=== PATIENT | female | born 1955 | race Caucasian/White ===

== ENCOUNTER 2021-02-22 13:10 | Day surgery (SDC) | payer MEDICARE, OTHER ==
[~2021-02-22] VITALS: Ht 170.2 cm; Wt 92.2 kg
[~2021-02-22 13:10] MED LIST: ACHD5005 PO; ALPRAZolam 0.25 MG (XANAX) TAB PO PRN; AMIT150T PO; ATOR20TA66 PO; BUPR200T3 PO; CALCIUM CARBONATE 500 MG (TUMS) TAB.CHEW PO PRN; CARV25TA PO; CEPH250C PO; CLON0.5T4 PO; IBUP-1780 PO; INDO25CA99 PO; LEVO25TA5 PO; LOPERAMIDE 2 MG (IMODIUM) TABLET PO PRN; LOSA1TAB23 PO; MELATONIN 3 MG TABLET PO PRN; NF-ZOL12.5 PO; NS IV 1000 ML 1,000 ML IV SCH; PANT40TA52 PO; POTA20TA15 PO; TIZA4TAB4 PO; diphenhydrAMINE 25 MG TAB (BENADRYL) PO PRN; morphine INJ 10 MG/ML 1ML (SYR OR VIAL) IVP PRN
[2021-02-22 13:45] VITALS: BP 202/84
[2021-02-22 14:10] VITALS: BP 185/78
[2021-02-22] MEDS ORDERED: ACETAMINOPHEN 325 MG TABLET PO PRN (14:15)
[2021-02-22] MEDS ORDERED: OMEP40CA6 PO (14:47)
[2021-02-22] MEDS ORDERED: LOSA50TA63 PO (14:47)
[2021-02-22] MEDS ORDERED: CLON0.5T4 PO (14:47)
[2021-02-22 15:01] LABS: BASOPHILS % (AUTO) 0 % (0-10); EOSINOPHILS # (AUTO) 0.1 10^3/uL (0.0-0.3); EOSINOPHILS % (AUTO) 2 % (0-10); HEMATOCRIT 40 % (35-52); HEMOGLOBIN 13.2 g/dL (11.5-16.0); LYMPHOCYTES # (AUTO) 1.8 X 10^3 (1.0-4.0); LYMPHOCYTES % (AUTO) 29 % (12-44); MEAN CORPUSCULAR HEMOGLOBIN 31 pg (25-34); MEAN CORPUSCULAR HGB CONC 33 g/dL (32-36); MEAN CORPUSCULAR VOLUME 95 fL (80-99); MEAN PLATELET VOLUME 9.6 fL (9.0-12.2); MONOCYTES # (AUTO) 0.4 X 10^3 (0.0-1.0); MONOCYTES % (AUTO) 6 % (0-12); NEUTROPHILS % (AUTO) 64 % (42-75); PLATELET COUNT 219 10^3/uL (130-400); WHITE BLOOD COUNT 6.4 10^3/uL (4.3-11.0)
[2021-02-22] MEDS ORDERED: CARV25TA PO (15:02)
[2021-02-22 15:15] LABS: ALBUMIN 3.9 GM/DL (3.2-4.5); POTASSIUM 3.9 MMOL/L (3.6-5.0)
[2021-02-22] MEDS ORDERED: HEParin DRIP 25000 UNIT/500ML 500 ML IV SCH (15:15)
[2021-02-22] MEDS ORDERED: NITROGLYCERIN 0.4 MG SL TABS BTL 25'S SL PRN (15:15)
[2021-02-22] MEDS ORDERED: HEParin 1000 UNIT/ML (10ML VIAL) FOR BOLUS IV PRN (15:15)
[2021-02-22 15:16] LABS: CALCIUM 9.7 MG/DL (8.5-10.1)
[2021-02-22 15:19] LABS: BILIRUBIN,TOTAL 0.4 MG/DL (0.1-1.0)
[2021-02-22 15:21] LABS: CREATININE SERUM 1.08 MG/DL (0.60-1.30)
[2021-02-22 15:30] VITALS: BP 214/81
[2021-02-22] MEDS ORDERED: ASPIRIN E.C. 81 MG (ECOTRIN) TAB PO ONE (15:30)
--- NOTE | 2021-02-22 15:31 | Consultation-Cardiology ---
HPI-Cardiology Cardiology Consultation: Date of Consultation 02/22/2021 Date of Admission 02/22/2021 Attending Physician Eula Davis DO Admitting Physician Ruba,Local Physician Consulting Physician SAIGE DIAZ JR, MD HPI: Time Seen by a Provider: 15:26 Chief Complaint: Reason for consultation: Chest pain. I had the pleasure of seeing Michelle on the medical floor at [facility] and [place], [place] this afternoon. She has no known history of coronary artery disease. 3 days ago when she got up in the morning she started having sharp, substernal chest discomfort associated with shortness of breath. She was helping her disabled 40-year-old daughter get ready for adult daycare and exertion was making the discomfort worse. She did not seek medical attention. Once her daughter left, she rested and the chest discomfort resolved. However, for the remainder of the day, anytime she would try to do activity at home, she would get recurrent chest discomfort. She denies radiation. Other than the shortness of breath, she denies any other associated complaints. Then yesterday she had much more severe chest discomfort. She describes this as 50 out of 10. She finished helping her daughter get ready to leave the house and then just try to sleep for the day. However, she had chest discomfort off and on for most of yesterday. This morning the chest discomfort had eased up but she was still getting exertional chest tightness and sharp chest pains. She called her primary provider who recommended she go to the emergency room at [facility]. She was subsequently transferred to our facility for further evaluation. At the outside hospital she did have an echocardiogram that showed a normal ejection fraction. She was not given any aspirin at the outside hospital. When I saw her in the floor she was still having some mild, 3/10 chest pain. A short while earlier, she told her nurse she was having 1/10 chest pain. She did not normally have dyspnea. She denies any previous history of chest discomfort. She denies paroxysmal nocturnal dyspnea, orthopnea, palpitations, lightheadedness, or syncope. She gets mild right ankle edema from time to time. She smokes 7-8 cigarettes/day. She spends much of her time hel ping her disabled daughter who lives with her. 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 Certain portions of this document may have been dictated utilizing voice recognition technology. Inherent to this technology, typographical and grammatical errors may exist. As much as I am diligent to identify and correct these mistakes, some errors may remain in the document. Review of Systems-Cardiology Review of Systems Other comments Review of 10 organ systems is as per the history of present illness, otherwise negative. IYL-[id number]-Jmddsb Hx Patient Social History Smoking Status: Current Everyday Smoker Have you traveled recently?: No Alcohol Use?: No Pt feels they are or have been: No Tobacco type used: Cigarettes Immunizations Up To Date Tetanus Booster (TDap): Unknown Date of Pneumonia Vaccine: Mar 04, 2015 Past Medical History PMH As described under Assessment. Family Medical History Family Medical History: The patient does not know of any family history of premature coronary artery disease. Family History: Patient reports no known family medical history. Allergies and Home Medications Allergies Coded Allergies: methylergonovine (Verified Allergy, Intermediate, INCREASED B/P, N/V, 01/17/16) Patient Home Medication List Home Medication List Reviewed: Yes Amitriptyline HCl (Amitriptyline HCl) 150 Mg Tablet, 150 MG PO HS, (Reported) Entered as Reported by: STEPHANIE MARIEE on 01/17/16 1233 Last Action: Reviewed Carvedilol (Carvedilol) 25 Mg Tablet, 25 MG PO HS, (Reported) Entered as Reported by: ANNETTE BAR on 02/22/21 1502 Last Action: Reviewed Clonazepam (Clonazepam) 0.5 Mg Tablet, 0.5 MG PO BID PRN for SPASMS, (Reported) Entered as Reported by: ANNETTE BAR on 02/22/211446 Last Action: Reviewed Losartan Potassium (Losartan Potassium) 50 Mg Tablet, 50 MG PO HS, (Reported) Entered as Reported by: ANNETTE BAR on 02/22/211446 Last Action: Reviewed Omeprazole (Omeprazole) 40 Mg Capsule.dr, 40 MG PO HS, (Reported) Entered as Reported by: ANNETTE BAR on 02/22/211446 Last Action: Reviewed Tizanidine HCl (Tizanidine HCl) 4 Mg Tablet, 4 MG PO Q6H PRN for SPASMS, (Reported) Entered as Reported by: STEPHANIE MARIEE on 01/17/16 1233 Last Action: Reviewed Discontinued Medications Atorvastatin Calcium (Atorvastatin Calcium) 20 Mg Tablet, 20 MG PO HS, (Reported) Discontinued Reason: No Longer Taking Entered as Reported by: STEPHANIE MARIEE on 01/17/16 123 Last Action: Discontinued Bupropion HCl (Bupropion HCl Sr) 200 Mg Tablet.er, 200 MG PO BID, (Reported) Discontinued Reason: No Longer Taking Entered as Reported by: STEPHANIE MARIEE on 01/17/16 123 Last Action: Discontinued Carvedilol (Carvedilol) 25 Mg Tablet, 25 MG PO BID, (Reported) Discontinued Reason: No Longer Taking Entered as Reported by: STEPHANIE MARIEE on 01/17/161232 Last Action: Discontinued Clonazepam (Clonazepam) 0.5 Mg Tablet, 0.5 MG PO BID, (Reported) Discontinued Reason: No Longer Taking Entered as Reported by: STEPHANIE MARIEE on 01/17/161232 Last Action: Discontinued Indomethacin (Indomethacin) 25 Mg Capsule, 25 MG PO TID Discontinued Reason: No Longer Taking Prescribed by: STEVE ZHOU on 02/04/16 1227 Last Action: Discontinued Levothyroxine Sodium (Levothyroxine Sodium) 25 Mcg Tablet, 25 MCG PO DAILY, (Reported) Discontinued Reason: No Longer Taking Entered as Reported by: STEPHANIE MARIEE on 01/17/161232 Last Action: Discontinued Losartan/Hydrochlorothiazide (Losartan-Hctz 100-25 mg Tab) 1 Each Tablet, 1 TAB PO HS, (Reported) Discontinued Reason: No Longer Taking Entered as Reported by: STEPHANIE MARIEE on 01/17/16 123 Last Action: Discontinued Potassium Chloride (Potassium Chloride) 20 Meq Tab.er.prt, 20 MEQ PO DAILY, (Reported) Discontinued Reason: No Longer Taking Entered as Reported by: CHRISTINA XIAO on 02/03/16 0904 Last Action: Discontinued Zolpidem Tartrate (Zolpidem Tartrate ER) 12.5 Mg Tab.mphase, 12.5 MG PO HS PRN for SLEEP, (Reported) Discontinued Reason: No Longer Taking Entered as Reported by: STEPHANIE MARIEE on 01/17/16 123 Last Action: Discontinued Exam Vital Signs Vital Signs Date Time Temp Pulse Resp B/P (MAP) Pulse Ox O2 Delivery O2 Flow Rate FiO2 02/22/21 13:45 36.1 75 20 202/84 (123) 98 Room Air Physical Exam General: Alert. No acute distress. Well nourished and appears stated age. Eye: Extraocular movements are intact. Conjunctivae are clear. There are no xanthelasma. HENT: Normocephalic. Atraumatic. Carotid pulsations 2/2 without bruits. Neck: Jugular venous pressure does not appear elevated. No thyromegaly appreciated. Respiratory: Lungs are clear to auscultation. Respirations are non-labored. Breath sounds are equal. Symmetrical chest wall expansion. Cardiovascular: Normal rate. Regular rhythm. No murmur. No gallop. Point of maximal impulse is not appear displaced. Good pulses equal in all extremities. No edema. Gastrointestinal: Soft. Normal bowel sounds. Skin: Skin turgor is normal. There is no pallor. Musculoskeletal: No kyphosis or scoliosis appreciated. Neurologic: Alert and oriented to person, place, time. Cranial nerves 3-12 appear grossly intact. The patient has good motor tone strength in the upper and lower extremities bilaterally. Psychiatric: Cooperative. Appropriate mood & affect. Labs Laboratory Tests Test 02/22/21 14:54 Range/Units White Blood Count 6.4 4.3-11.0 10^3/uL Red Blood Count 4.22 3.80-5.11 10^6/uL Hemoglobin 13.2 11.5-16.0 g/dL Hematocrit 40 35-52 % Mean Corpuscular Volume 95 80-99 fL Mean Corpuscular Hemoglobin 31 25-34 pg Mean Corpuscular Hemoglobin Concent 33 32-36 g/dL Red Cell Distribution Width 13.9 10.0-14.5 % Platelet Count 219 130-400 10^3/uL Mean Platelet Volume 9.6 9.0-12.2 fL Immature Granulocyte % (Auto) 0 % Neutrophils (%) (Auto) 64 42-75 % Lymphocytes (%) (Auto) 29 12-44 % Monocytes (%) (Auto) 6 0-12 % Eosinophils (%) (Auto) 2 0-10 % Basophils (%) (Auto) 0 0-10 % Neutrophils # (Auto) 4.0 1.8-7.8 X 10^3 Lymphocytes # (Auto) 1.8 1.0-4.0 X 10^3 Monocytes # (Auto) 0.4 0.0-1.0 X 10^3 Eosinophils # (Auto) 0.1 0.0-0.3 10^3/uL Basophils # (Auto) 0.0 0.0-0.1 10^3/uL Immature Granulocyte # (Auto) 0.0 0.0-0.1 10^3/uL Activated Partial Thromboplast Time 32 24-35 SEC Sodium Level 139 135-145 MMOL/L Potassium Level 3.9 3.6-5.0 MMOL/L Chloride Level 104 98-107 MMOL/L Carbon Dioxide Level 27 21-32 MMOL/L Anion Gap 8 5-14 MMOL/L Blood Urea Nitrogen 14 7-18 MG/DL Creatinine 1.08 0.60-1.30 MG/DL Estimat Glomerular Filtration Rate 51 BUN/Creatinine Ratio 13 Glucose Level 92 70-105 MG/DL Calcium Level 9.7 8.5-10.1 MG/DL Corrected Calcium 9.8 8.5-10.1 MG/DL Total Bilirubin 0.4 0.1-1.0 MG/DL Aspartate Amino Transf (AST/SGOT) 21 5-34 U/L Alanine Aminotransferase (ALT/SGPT) 16 0-55 U/L Alkaline Phosphatase 90 40-136 U/L Troponin I 0.098 H <0.028 NG/ML Total Protein 7.0 6.4-8.2 GM/DL Albumin 3.9 3.2-4.5 GM/DL Triglycerides Level 81 <150 MG/DL Cholesterol Level 226 H < 200 MG/DL LDL Cholesterol Direct 163 H 1-129 MG/DL VLDL Cholesterol 16 5-40 MG/DL HDL Cholesterol 61 H 40-60 MG/DL Radiology Echocardiogram from [facility] showed normal left ventricular chamber size with severe septal hypertrophy. Regional wall motion abnormalities could not be excluded due to poor endocardial definition. The overall left ventricular systolic function was preserved with an estimated ejection fraction of 60-65%. There was grade 1 diastolic dysfunction. There was mild aortic valve sclerosis. The pulmonary artery pressure could not be estimated. ECG Impression ECG Comment Sinus rhythm with inferolateral T wave inversion concerning for possible recent inferior myocardial infarction although there are no Q waves. Diagnosis/Problems Diagnosis/Problems (1) Non-ST elevation myocardial infarction (NSTEMI), initial care episode Assessment & Plan: She had mild elevation of the troponin at the outside hospital. However, this is in the setting of stage III chronic kidney disease. She has inferolateral T wave changes on her electrocardiogram is outlined above. Fortunately, her overall left ventricular systolic function appears normal. She is nearly pain-free at this point time. I will start her on aspirin with the first dose now. I will treated with heparin infusion and topical nitrates. I will plan on a cardiac catheterization first thing in the morning. If she has recurrent chest discomfort overnight, she will need to be placed on intravenous nitroglycerin. If for some reason, we cannot get her pain-free, she may need a more urgent cardiac catheterization this evening. I do not see any urgent need for cardiac catheterization at this moment. (2) Hypertensive urgency Assessment & Plan: Her blood pressure is presently markedly elevated. I will restart her carvedilol and losartan with the first doses to be given now. (3) Hypertrophic cardiomyopathy Assessment & Plan: She had severe septal hypertrophy without evidence of outflow obstruction on her outside echocardiogram. This should not be contributing to her chest discomfort, the abnormal troponin levels or the electrocardiogram changes. However, this will need to be followed longitudinally. (4) Chronic kidney disease, stage 3 Assessment & Plan: She will need vigorous intravenous hydration prior to the cardiac catheterization to help reduce the risk of contrast-induced nephropathy. (5) Primary hypertension Assessment & Plan: Resume outpatient antihypertensive medications as outlined above. (6) Mixed hyperlipidemia Assessment & Plan: I will start her on moderate dose rosuvastatin in light of the probable non-ST elevation myocardial infarction. She is ordered for a lipid profile. (7) Cigarette smoker Assessment & Plan: Smoking cessation was strongly encouraged. SAIGE DIAZ JR, MD Feb 22, 2021 15:31
[2021-02-22] MEDS: HYDROcodone/APAP 5 MG/325 MG (LORTAB) TAB PO PRN (15:33)
[2021-02-22] MEDS: NITROGLYCERIN 2% OINT 1 GM UNIT DOSE PACKET TOP SCH ×2 (15:47→18:49)
[2021-02-22] MEDS ORDERED: LOSARTAN 50 MG (COZAAR) TAB PO ONE (16:00)
[2021-02-22] MEDS ORDERED: CATHETER FLUSH 10 ML SYR IV PRN (16:00)
--- NOTE | 2021-02-22 16:00 | History & Physical-Hospitalist ---
MARCELLA CHAMBERS 02/22/21 1600: History of Present Illness HPI/Chief Complaint Michelle Banegas is a 65yo female with a PMH of COPD, HTN who is admitted on for management for hypertensive urgency and unstable angina. Patient reports onset of dull, crushing chest pain that began on 02/20 while vacuuming. She rated the pain "15/10" in severity, and reports that it is non-radiating and non- reproducible. Is associated with feeling like her heart is racing. Reports that the pain lasts minutes at a time and occurs several times during the day. She reports worsening dyspnea during this time, separate from her baseline COPD. Pain is worsened with activity. On 02/21 pt reported onset of symptoms at rest. She has never experienced symptoms like this before. She initially presented to [facility] where she was given ASA. She was then transferred to [facility] for further management. In addition, patient reports acute increase in blood pressure for the past three days. Patient normally takes blood pressures at home, and reports systolic pressures between 130s to 180s. However, since 02/20 her pressures have been 200s systolic. Denies fevers, chills, nausea, vomiting. Denies diarrhea, constipation, dysuria. Endorses chest pain, palpitations, SOB. Source: patient Exam Limitations: no limitations Date Seen 02/22/21 Attending Physician Eula Rogers DO PCP No,Local Physician Referring Physician Date of Admission Feb 22, 2021 at 13:40 Home Medications & Allergies Home Medications Reviewed patient Home Medication Reconciliation performed by pharmacy medication reconciliations survey technician and/or nursing. Patients Allergies have been reviewed. Allergies Allergies Coded Allergies methylergonovine (Verified Allergy, Intermediate, INCREASED B/P, N/V, 01/17/16) Past Stoepxl-Fsqxth-Xdekiy Hx Patient Social History Marrital Status: Tobacco Use?: Yes Tobacco type used: Cigarettes Smoking Status: Current Everyday Smoker Smokeless Tobacco Frequency: Current Everyday User (6-7 cigarettes per day for 57 years) Use of E-Cig and/or Vaping dev: No Substance use?: No Alcohol Use?: No Pt feels they are or have been: No Immunizations Up To Date First/Initial COVID19 Vaccinat: OCT 14 2020 Second COVID19 Vaccination [place]: NOVEMBER 17 2020 Tetanus Booster (TDap): Unknown Hepatitis A: No Hepatitis B: No PED Vaccines UTD: No Date of Pneumonia Vaccine: Mar 04, 2015 Seasonal Allergies Seasonal Allergies: Yes Current Status Advance Directives: Yes Advance Directive Location: Family to bring in copy Communicates: Verbally Primary Language: Mosotho Preferred Spoken Language: Mosotho Is interpretation needed?: No Past Medical History Surgeries: Gallbladder COPD Currently Using CPAP: No Currently Using BIPAP: No High Cholesterol, Hypertension Sexually Transmitted Disease: No HIV/AIDS: No Degenerate Disk Disease, Arthritis Hypothyroidsim Loss of Vision: Bilateral Hearing Impairment: Denies Anxiety Adverse Reaction/Blood Tranf: No (N/A) Family Medical History Patient reports no known family medical history. Physical Exam Physical Exam Vital Signs Vital Signs - First Documented 02/22/21 13:45 Temp 36.1 Pulse 75 Resp 20 B/P (MAP) 202/84 (123) Pulse Ox 98 O2 Delivery Room Air Capillary Refill : Height, Weight, BMI Height: 5'7.00" Weight: 190lbs. 6.8oz. [id number]; 31.82 BMI Method:Stated General Appearance: No Apparent Distress, WD/WN Neck: Normal Inspection, Non Tender, Supple Respiratory: Chest Non Tender, Lungs Clear, Normal Breath Sounds, No Accessory Muscle Use, No Respiratory Distress Cardiovascular: Regular Rate, Rhythm, Normal Peripheral Pulses, Systolic Murmur ([place] best at right side, 2nd intercoastal space) Gastrointestinal: Normal Bowel Sounds Extremity: Pedal Edema Neurologic/Psychiatric: Alert, Oriented x3 Skin: Normal Color, Warm/Dry Results Results/Procedures Labs Laboratory Tests 02/22/21 14:54 Patient resulted labs reviewed. Assessment/Plan Admission Diagnosis Acute Coronary Syndrome Admission Status: Inpatient Order (span 2 midnights) Reason for Inpatient Admission: ACS management and heart cath Assessment and Plan Michelle Banegas is a 65yo female with a PMH of COPD, HTN who is admitted on 02/22 for management for hypertensive urgency and unstable angina. Her current medical problems are the following Acute coronary syndrome NSTEMI -EKG 02/22 Consistent w/ NSTEMI: Twave inversions in inferior leads -Pain relieved with ASA at OSH. Symptoms present at rest and activity -Trop at OSH 0.106, at [facility] 0.09 Plan: -Per Cardiology: Continue ASA. Begin heparin, morphine, nitroglycerin -Heart cath 02/23 AM Hypertensive Urgency -02/22: On admission BP SBP>200 -Continue ADMINISTRATIVE MANAGER Lisinopril, Carvedilol -Continue Nitroglycerin q6h and PRN HFpEF -Echo from OSH consistent with diastolic dysfunction w/ preserved EF -Chest xray 02/22: Coarse intersitial changes, enlarged cardiac silhouette. -BLE edema on exam Plan: -Continue ADMINISTRATIVE MANAGER Carvedilol 25mg PO qday Mild -Echo from OSH indicates mild . -Systolic murmur on exam -No management indicated COPD -No ADMINISTRATIVE MANAGER medications -Baseline - no supp oxygen -Continue to follow Chronic Neck Pain -Continue ADMINISTRATIVE MANAGER meds EULA ROGERS DO 02/23/21 0518: History of Present Illness HPI/Chief Complaint CC: Chest pain with hypertension HPI: This is a 65yoWF who presented to [place] [facility] with complaints of chest pain and significantly elevated BP of 200. EKG showed ST changes, concerning for ischemia, Dr. Owens will be consulted and will likely perform cardiac catheterization. Norvasc of 10 mg was given. Patient does smoke. No significant alcohol use. She has been 6 times. Source: patient Exam Limitations: no limitations Time Seen by a Provider: 18:00 Past Viuaiwe-Zeneux-Xhaoma Hx Patient Social History Marrital Status: Employed/Student: retired Smoking Status: Current Everyday Smoker Smokeless Tobacco Frequency: Current Everyday User (6-7 cigarettes per day for 57 years) Past Medical History Hypertension Family Medical History Patient reports no known family medical history. Review of Systems Constitutional: see HPI, malaise, weakness EENTM: no symptoms reported Respiratory: no symptoms reported Cardiovascular: chest pain Gastrointestinal: no symptoms reported Genitourinary: no symptoms reported Musculoskeletal: no symptoms reported Skin: no symptoms reported Psychiatric/Neurological: No Symptoms Reported All Other Systems Reviewed Negative Unless Noted: Yes Physical Exam Physical Exam General Appearance: No Apparent Distress, WD/WN, Chronically ill Eyes: Right Eye Normal Inspection, Right Eye PERRL HEENT: PERRL/EOMI, Normal ENT Inspection, Pharynx Normal, Moist Mucous Membrane s Neck: Full Range of Motion, Normal Inspection, Non Tender Respiratory: Chest Non Tender, Lungs Clear, Normal Breath Sounds, No Accessory Muscle Use, No Respiratory Distress Cardiovascular: Regular Rate, Rhythm, No Edema, No Gallop, No JVD, No Murmur, Normal Peripheral Pulses Gastrointestinal: Normal Bowel Sounds, No Organomegaly, No Pulsatile Mass, Non Tender, Soft Back: Normal Inspection, No CVA Tenderness, No Vertebral Tenderness Extremity: Normal Capillary Refill, Normal Inspection, Normal Range of Motion, Non Tender, No Calf Tenderness, No Pedal Edema Neurologic/Psychiatric: Alert, Oriented x3, No Motor/Sensory Deficits, Normal Mood/Affect Skin: Normal Color, Warm/Dry Lymphatic: No Adenopathy Assessment/Plan Admission Diagnosis Assessment: Chest pain suspicious for angina needs cardiac cath Malignant hypertension Smoker Plan: Blood pressure management Cardiac cath tomorrow Admission Status: Observation Diagnosis/Problems Diagnosis/Problems (1) Chest pain (2) Cigarette smoker Supervisory-Addendum Brief Verification & Attestation Participated in pt care: history, MDM, physical Personally performed: exam, history, MDM, supervision of care Care discussed with: Medical Student Procedures: n/a Results interpretation: Verified all documentation Verification and Attestation of Medical Student E/M Service A medical student performed and documented this service in my presence. I reviewed and verified all information documented by the medical student and made modifications to such information, when appropriate. I personally performed the physical exam and medical decision making. Eula Rogers, Feb 23, 2021,05:18 MARCELLA CHAMBERS Feb 22, 2021 16:00 EULA ROGERS DO Feb 23, 2021 05:18
[2021-02-22] MEDS: NS IV 1000 ML 1,000 ML IV SCH (16:44)
[2021-02-22 19:33] VITALS: BP 119/55
[2021-02-22] MEDS: DOCUSATE SODIUM 100 MG (COLACE) CAP PO SCH (19:45)
[2021-02-22] MEDS: SENNA W/DOCUSATE (SENOKOT S) TABLET PO SCH (19:45)
[2021-02-22] MEDS: ROSUVASTATIN 20 MG (CRESTOR) TABLET PO SCH (19:47)
[2021-02-22 23:30] VITALS: BP 109/56
[2021-02-23] VITALS (8 sets, daily range): BP systolic 111–183; BP diastolic 59–94
[2021-02-23] MEDS: NITROGLYCERIN 2% OINT 1 GM UNIT DOSE PACKET TOP SCH ×3 (00:25→13:22)
[2021-02-23 04:44] LABS: BASOPHILS % (AUTO) 1 % (0-10); EOSINOPHILS # (AUTO) 0.1 10^3/uL (0.0-0.3); EOSINOPHILS % (AUTO) 2 % (0-10); HEMATOCRIT 37 % (35-52); HEMOGLOBIN 12.1 g/dL (11.5-16.0); LYMPHOCYTES # (AUTO) 1.8 10^3/uL (1.0-4.0); LYMPHOCYTES % (AUTO) 29 % (12-44); MEAN CORPUSCULAR HEMOGLOBIN 31 pg (25-34); MEAN CORPUSCULAR HGB CONC 33 g/dL (32-36); MEAN CORPUSCULAR VOLUME 95 fL (80-99); MEAN PLATELET VOLUME 10.1 fL (9.0-12.2); MONOCYTES # (AUTO) 0.6 10^3/uL (0.0-1.0); MONOCYTES % (AUTO) 9 % (0-12); NEUTROPHILS # (AUTO) 3.6 10^3/uL (1.8-7.8); NEUTROPHILS % (AUTO) 59 % (42-75); PLATELET COUNT 209 10^3/uL (130-400); WHITE BLOOD COUNT 6.2 10^3/uL (4.3-11.0)
[2021-02-23 05:01] LABS: ALBUMIN 3.3 GM/DL (3.2-4.5); POTASSIUM 3.7 MMOL/L (3.6-5.0)
[2021-02-23 05:02] LABS: CALCIUM 8.9 MG/DL (8.5-10.1)
[2021-02-23 05:03] LABS: TOTAL PROTEIN 5.8 GM/DL (6.4-8.2)
[2021-02-23 05:05] LABS: BILIRUBIN,TOTAL 0.4 MG/DL (0.1-1.0)
[2021-02-23 05:07] LABS: CREATININE SERUM 1.15 MG/DL (0.60-1.30)
[2021-02-23] MEDS ORDERED: NS IV 1000 ML 1,000 ML IV ONE (08:00)
[2021-02-23] MEDS ORDERED: HEParin (CATH LAB) 2,000 ML IV ONE (08:03)
[2021-02-23] MEDS ORDERED: LIDOCAINE 1% INJ 20 ML 20 ML VIAL ONE (08:03)
[2021-02-23] MEDS ORDERED: ASPIRIN E.C. 81 MG (ECOTRIN) TAB PO SCH (09:00)
[2021-02-23] MEDS ORDERED: MIDAZOLAM 5 MG/5 ML (VERSED) VIAL ONE (09:03)
[2021-02-23] MEDS ORDERED: HEParin 1000 UNIT/ML (10ML VIAL) FOR BOLUS ONE (09:03)
[2021-02-23] MEDS ORDERED: VERAPAMIL 5 MG/2 ML (CALAN) VIAL IV ONE (09:03)
[2021-02-23] MEDS ORDERED: fentaNYL INJ 100 MCG/2 ML AMP ONE ×2 (09:03→10:33)
[2021-02-23] MEDS ORDERED: NITRO DRIP 25000 MCG/D5W 250 ML IV ONE (09:03)
--- NOTE | 2021-02-23 09:55 | Pre-Op Note & Conscious Sedat ---
Pre-Operative Progress Note H&P Reviewed The H&P was reviewed, patient examined and no changes noted. Date H&P Reviewed: Feb 23, 2021 Time H&P Reviewed: 09:54 Pre-Op Diagnosis: Non-ST elevation myocardial infarction Conscious Sedation Pre-Proced ASA Score 2 For ASA 3 and 4: Consider anesthesia and medical clearance. Also, for patients with a history of failed moderate sedation consider anesthesia. Airway Lungs Heart ASA score ASA 1: a normal healthy patient ASA 2: a patient with a mild systemic disease (mid diabetes, controlled hypertension, obesity ASA 3: a patient with a severe systemic disease that limits activity (angina, COPD, prior Myocardial infarction) ASA 4: a patient with an incapacitating disease that is a constant threat to life (CHF, renal failure) ASA 5: a moribund patient not expected to survive 24 hrs. (ruptured aneurysm) ASA 6: a declared brain- patient whose organs are being harvested. For emergent operations, add the letter E after the classification Mallampati Classification Grade 2 Sedation Plan Analgesia, Amnesia, Plan communicated to team members, Discussed options with patient/fam, Discussed risks with patient/fam The patient is an appropriate candidate to undergo the planned procedure, sedation, and anesthesia. The patient immediately re-assessed prior to indication. SAIGE DIAZ JR, MD Feb 23, 2021 09:55
[2021-02-23] MEDS ORDERED: meTOprolol 5 MG/5 ML (LOPRESSOR) VIAL ONE (10:14)
[2021-02-23] MEDS ORDERED: hydrALAZINE (APESOLINE) 20 MG/ML VIAL ONE (10:30)
[2021-02-23] MEDS ORDERED: TICAGRELOR 90 MG TABLET (BRILINTA) PO ONE (10:40)
[2021-02-23] MEDS ORDERED: PATIENT MAY USE OWN MEDS, ALL PO SCH (11:15)
--- NOTE | 2021-02-23 11:35 | Cardiac Cath Report ---
CARDIAC CATHETERIZATION DATE OF PROCEDURE: 02/23/2021 INDICATION: Non-ST elevation myocardial infarction. HISTORY: The patient is a 65 year old female with no previously known history of coronary artery disease who presented to an outside hospital with several day history of chest discomfort. Her first troponin level was abnormal. There was no evidence of ST elevation on her electrocardiogram. She was then transferred to our hospital for further evaluation. Overnight, she became pain-free on intravenous heparin, aspirin, beta-yonny, and topical nitrates. She had 2 additional abnormal troponin levels here at our hospital. As such, she is now referred for further evaluation with a cardiac catheterization. PROCEDURES PERFORMED: 1. Diagnostic mashpee coronary angiography. 2. Drug-eluting stent placement to mid right coronary artery. This with the ischemia related vessel for the non-ST elevation myocardial infarction. PROCEDURE DESCRIPTION: After informed consent and in the fasting state, left heart catheterization was performed through the right radial artery utilizing a 6 Mosotho system by percutaneous approach. Standard Leatha catheters were utilized for the diagnostic portion of the procedure. I was not able to engage the left coronary artery from the right radial artery but did successfully interrogate the right coronary artery. I subsequently obtained access to the right femoral artery utilizing a 5 Mosotho micropuncture technique. The 5 Mosotho sheath was exchanged for a 6 Mosotho sheath. A 6 Mosotho AL-1 guide catheter was utilized for the percutaneous coronary intervention. All catheters were exchanged over a guidewire. Following the procedure, a vascular band was applied to the radial artery access site and the sheath was removed with good hemostasis. Following the procedure, a 6 Mosotho Mynx closure device was utilized to close the right femoral artery. RESULTS: HEMODYNAMICS: The aortic pressure was 149/72 mmHg. The aortic valve was not crossed. CORONARY ANGIOGRAPHY: Left main coronary artery: Free of significant disease. Left anterior descending coronary artery: There was a 70% stenosis in the mid segment which formed a bifurcation lesion with the first large diagonal branch with a Valentin classification of 1, 1, 0. There was RUTHIE-1 flow to the apical portion of the left anterior descending coronary artery. Left circumflex coronary artery: Free of significant disease. Right coronary artery: Dominant and very large in caliber with a 70% stenosis in the mid segment followed by a 90% stenosis in the mid segment with BISI-1 flow to the distal vessel. There was about a 5 mm distance between the 2 lesions and the vessel in between the lesions was also not entirely normal. This was most likely the ischemia related vessel for the non-ST elevation myocardial infarction. PERCUTANEOUS CORONARY INTERVENTION: Percutaneous coronary intervention was carried out on the mid right coronary artery through a 6 Mosotho AL-1 guide catheter from the right femoral sheath. The lesion was successfully crossed with a [employer] guidewire. I subsequently performed coronary angioplasty with a 3 x 15 mm trek balloon at a pressure of 10 jacque for 2 inflations. Flow was improved. I subsequently deployed a 4 x 28 mm drug-eluting Xience Guerline stent in the mid right coronary artery at a pressure of 16 jacque. Following stent placement, there was 0% residual stenosis with RUTHIE-3 flow. IMPRESSION: 1. Systemic hypertension. 2. Status post drug eluting stent placement to the mid right coronary artery with a 4 X 28 mm Xience Guerline stent with 0% residual stenosis and RUTHIE-3 flow. This was the ischemia related vessel for the acute non-ST elevation myocardial infarction. 3. There is moderate-severe residual disease in the mid left anterior descending coronary artery. This is a bifurcation lesion with the first diagonal branch at an area of extreme tortuousity in the vessel. 4. The patient is known to have normal left ventricular systolic function with an estimated ejection fraction of 60-65% by echocardiogram performed at [facility] on 02/22/2021. Certain portions of this document may have been dictated utilizing voice r ecognition technology. Inherent to this technology, typographical and grammatical errors may exist. As much as I am diligent to identify and correct these mistakes, some errors may remain in the document. SAIGE DIAZ JR, MD Feb 23, 2021 11:35
[2021-02-23] MEDS: DOCUSATE SODIUM 100 MG (COLACE) CAP PO SCH ×2 (12:26→19:52)
[2021-02-23] MEDS: SENNA W/DOCUSATE (SENOKOT S) TABLET PO SCH ×2 (12:27→19:52)
[2021-02-23] MEDS: NS IV 1000 ML 1,000 ML IV SCH ×3 (12:27→21:25)
[2021-02-23] MEDS: ASPIRIN E.C. 81 MG (ECOTRIN) TAB PO SCH (13:31)
[2021-02-23] MEDS: LOSARTAN 50 MG (COZAAR) TAB PO SCH (13:31)
--- NOTE | 2021-02-23 14:43 | Progress Note - Hospitalist ---
MARCELLA CHAMBERS 02/23/21 1443: Subjective HPI/CC On Admission Date Seen by Provider: Feb 23, 2021 Time Seen by Provider: 11:00 CC: Chest pain with hypertension HPI: This is a 65yoWF who presented to [facility] with complaints of chest pain and significantly elevated BP of 200. EKG showed ST changes, concerning for ischemia, Dr. Owens will be consulted and will likely perform cardiac catheterization. Norvasc of 10 mg was given. Patient does smoke. No significant alcohol use. She has been 6 times. Subjective/Events-last exam Today Ms. Banegas reported cessation of chest pain from the previous night. Has no other questions nor concerns. Was agreeable to the procedure today. Denies fevers, chills, SOB. Denies chest pain, palpitations. Denies nausea, vomiting, diarrhea, constipation Objective Exam Vital Signs Vital Signs Date Time Temp Pulse Resp B/P (MAP) Pulse Ox O2 Delivery O2 Flow Rate FiO2 02/23/21 12:39 35.7 02/23/21 12:36 66 02/23/21 12:30 168/82 (110) 92 Room Air 02/23/21 12:15 20 Capillary Refill : Greater Than 3 Seconds General Appearance: No Apparent Distress, WD/WN Respiratory: Chest Non Tender, No Accessory Muscle Use, No Respiratory Distress, Rhonci Cardiovascular: Regular Rate, Rhythm, No Edema, No JVD, No Murmur, Normal Peripheral Pulses Gastrointestinal: Normal Bowel Sounds Extremity: Normal Capillary Refill Neurologic/Psychiatric: Alert, Oriented x3 Results/Procedures Lab Laboratory Tests 02/23/21 04:25 Patient resulted labs reviewed. Assessment/Plan Assessment and Plan Assess & Plan/Chief Complaint Michelle Banegas is a 65yo female with a PMH of COPD, HTN who is admitted on 02/22 for management for hypertensive urgency and unstable angina. Her current medical problems are the following Acute coronary syndrome NSTEMI -EKG 02/22 Consistent w/ NSTEMI: Twave inversions in inferior leads -Pain relieved with ASA at OSH. Symptoms present at rest and activity -Trop at OSH 0.106, at [facility] 0.098 and 0.100 Plan: -Heart cath: Drug eluting stent placement of RCA -Significant disease also noted in LAD -Per cardiology:Begin ticagrelor. 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 -BLE edema on exam Plan: -Continue [employer]IEF OPERATOR LOCK TENDER Carvedilol 25mg PO qday Mild -Echo from OSH indicates mild . -Systolic murmur on exam -No management indicated COPD -No CHIEF OPERATOR LOCK TENDER medications -Baseline - no supp oxygen -Continue to follow Chronic Neck Pain -Continue CHIEF OPERATOR LOCK TENDER meds EULA ROGERS DO 02/24/21 0548: Subjective Subjective/Events-last exam Patient just returned from cath Stent placed RCA Assessment/Plan Assessment and Plan Assess & Plan/Chief Complaint s/p stent BP improved Supervisory-Addendum Brief Verification & Attestation Participated in pt care: history, MDM, physical Personally performed: exam, history, MDM, supervision of care Care discussed with: Medical Student Procedures: n/a Results interpretation: Verified all documentation Verification and Attestation of Medical Student E/M Service A medical student performed and documented this service in my presence. I reviewed and verified all information documented by the medical student and made modifications to such information, when appropriate. I personally performed the physical exam and medical decision making. Eula Rogers, Feb 24, 2021,05:45 MARCELLA CHAMBERS Feb 23, 2021 14:43 EULA ROGERS DO Feb 24, 2021 05:48
[2021-02-23] MEDS ORDERED: amLODIPine 5 MG (NORVASC) TAB PO NR (15:00)
[2021-02-23] MEDS ORDERED: amLODIPine 5 MG (NORVASC) TAB PO ONE ×2 (16:15→16:30)
[2021-02-23] MEDS: ROSUVASTATIN 20 MG (CRESTOR) TABLET PO SCH (19:51)
[2021-02-23] MEDS: TICAGRELOR 90 MG TABLET (BRILINTA) PO SCH (19:51)
[2021-02-23] MEDS: HYDROcodone/APAP 5 MG/325 MG (LORTAB) TAB PO PRN (21:31)
[2021-02-24 04:00] VITALS: BP 133/58
[2021-02-24] MEDS: NS IV 1000 ML 1,000 ML IV SCH (04:22)
[2021-02-24 05:10] LABS: HEMATOCRIT 38 % (35-52); HEMOGLOBIN 13.1 g/dL (11.5-16.0); MEAN CORPUSCULAR HEMOGLOBIN 32 pg (25-34); MEAN CORPUSCULAR HGB CONC 34 g/dL (32-36); MEAN CORPUSCULAR VOLUME 92 fL (80-99); MEAN PLATELET VOLUME 9.9 fL (9.0-12.2); PLATELET COUNT 231 10^3/uL (130-400); WHITE BLOOD COUNT 10.5 10^3/uL (4.3-11.0)
[2021-02-24 05:29] LABS: POTASSIUM 3.6 MMOL/L (3.6-5.0)
[2021-02-24 05:30] LABS: CALCIUM 9.6 MG/DL (8.5-10.1)
[2021-02-24 05:34] LABS: CREATININE SERUM 1.19 MG/DL (0.60-1.30)
[2021-02-24 08:00] VITALS: BP 128/71
[2021-02-24] MEDS ORDERED: ROSU20TA32 PO (08:29)
[2021-02-24] MEDS ORDERED: AMLO-251 PO (08:29)
[2021-02-24] MEDS ORDERED: NITR0.4T42 SL (08:29)
[2021-02-24] MEDS ORDERED: ASPI-1238 PO (08:29)
[2021-02-24] MEDS ORDERED: TICA90TA PO (08:29)
[2021-02-24] MEDS: DOCUSATE SODIUM 100 MG (COLACE) CAP PO SCH (08:58)
[2021-02-24] MEDS: TICAGRELOR 90 MG TABLET (BRILINTA) PO SCH (08:58)
[2021-02-24] MEDS: LOSARTAN 50 MG (COZAAR) TAB PO SCH (08:58)
[2021-02-24] MEDS: ASPIRIN E.C. 81 MG (ECOTRIN) TAB PO SCH (08:58)
[2021-02-24] MEDS: SENNA W/DOCUSATE (SENOKOT S) TABLET PO SCH (08:59)
[2021-02-24] MEDS ORDERED: amLODIPine 10 MG (NORVASC) TAB PO SCH (09:00)
[2021-02-24] MEDS ORDERED: amLODIPine 5 MG (NORVASC) TAB PO SCH (09:00)
--- NOTE | 2021-02-24 09:52 | Cardiology Progress Note ---
Progress Note-Cardiology Events since last exam Date Seen by Provider: Feb 24, 2021 Time Seen by Provider: 09:48 Events since last exam I am seeing her for coronary artery disease status post non-ST elevation serene cardial infarction. She denies any further chest discomfort. She denies dyspnea, palpitations, syncope, or change in her chronic, mild ankle edema. Certain portions of this document may have been dictated utilizing voice recognition technology. Inherent to this technology, typographical and gram matical errors may exist. As much as I am diligent to identify and correct these mistakes, some errors may remain in the document. Vitals Last set of Vitals Signs Vital Signs 02/23/21 02/24/21 02/24/21 23:30 04:00 07:00 Temp 37.0 Pulse 65 Resp 28 B/P (MAP) 133/58 (83) Pulse Ox 94 O2 Delivery Room Air Labs Labs Laboratory Tests 02/24/21 04:50 Exam Vital Signs Vital Signs Date Time Temp Pulse Resp B/P (MAP) Pulse Ox O2 Delivery O2 Flow Rate FiO2 02/24/21 07:00 65 02/24/21 04:00 28 133/58 (83) 94 Room Air 02/23/21 23:30 37.0 Physical Exam General: Alert. No acute distress. She is overweight. Eye: No xanthelasma. HENT: Normocephalic. Neck: Jugular venous pressure does not appear elevated. Respiratory: Lungs have scattered inspiratory wheezes bilaterally. Respirations are non-labored. Breath sounds are equal. Symmetrical chest wall expansion. Cardiovascular: Normal rate. Regular rhythm. 2/6 systolic ejection murmur. No gallop. Trace bilateral pretibial edema. Gastrointestinal: Soft. Normal bowel sounds. Skin: Warm. Dry. Neurologic: Alert and oriented to person, place, time. Cranial nerves 3-11 grossly intact. Psychiatric: Cooperative. Appropriate mood & affect. Labs Laboratory Tests Test 02/24/21 04:50 Range/Units White Blood Count 10.5 4.3-11.0 10^3/uL Red Blood Count 4.16 3.80-5.11 10^6/uL Hemoglobin 13.1 11.5-16.0 g/dL Hematocrit 38 35-52 % Mean Corpuscular Volume 92 80-99 fL Mean Corpuscular Hemoglobin 32 25-34 pg Mean Corpuscular Hemoglobin Concent 34 32-36 g/dL Red Cell Distribution Width 13.5 10.0-14.5 % Platelet Count 231 130-400 10^3/uL Mean Platelet Volume 9.9 9.0-12.2 fL Sodium Level 132 L 135-145 MMOL/L Potassium Level 3.6 3.6-5.0 MMOL/L Chloride Level 99 98-107 MMOL/L Carbon Dioxide Level 21 21-32 MMOL/L Anion Gap 12 5-14 MMOL/L Blood Urea Nitrogen 17 7-18 MG/DL Creatinine 1.19 0.60-1.30 MG/DL Estimat Glomerular Filtration Rate 46 BUN/Creatinine Ratio 14 Glucose Level 117 H 70-105 MG/DL Calcium Level 9.6 8.5-10.1 MG/DL Diagnosis/Problems Diagnosis/Problems (1) Non-ST elevation myocardial infarction (NSTEMI), initial care episode Assessment & Plan: She is status post non-ST elevation myocardial infarction. This was treated with 1 drug-eluting stent to the mid right coronary artery. She also has residual disease in the mid left anterior descending coronary artery and first diagonal branch which I plan to treat medically. She should co ntinue on dual antiplatelet therapy for a minimum month 1 years time in light of the myocardial infarction. She should continue on beta-yonny and statin medication. From a cardiac standpoint, she can be discharged home today. I have asked nursing to get her an appointment to see me in the office in 1 month. I did send prescriptions for all of her new cardiac medications to her outpatient pharmacy. (2) Hypertensive urgency Assessment & Plan: Her blood pressures are improved with resumption of her outpatient medication and the addition of amlodipine. (3) Hypertrophic cardiomyopathy Assessment & Plan: She had severe septal hypertrophy without evidence of outflow obstruction on her outside echocardiogram. This will need to be followed longitudinally. (4) Chronic kidney disease, stage 3 Assessment & Plan: Creatinine level has been stable. (5) Primary hypertension Assessment & Plan: As above. (6) Mixed hyperlipidemia Assessment & Plan: I have her on moderate dose statin in light of the myocardial infarction. I will plan on a follow-up lipid panel in 6 weeks after discharge. (7) Cigarette smoker Assessment & Plan: Smoking cessation was strongly encouraged. SAIGE DIAZ JR, MD Feb 24, 2021 09:52
--- NOTE | 2021-02-24 09:58 | Discharge Summary ---
Discharge Summary Hospital Course Was the Problem List Reviewed?: Yes Problems/Dx: (1) Non-ST elevation myocardial infarction (NSTEMI), initial care episode (2) Hypertensive urgency (3) Hypertrophic cardiomyopathy (4) Chronic kidney disease, stage 3 (5) Primary hypertension (6) Mixed hyperlipidemia (7) Cigarette smoker Hospital Course Date of Admission: Feb 22, 2021 at 13:40 Admission Diagnosis : Family Physician/Provider: No,Local Physician Date of Discharge: 02/24/21 Discharge Diagnosis: Non-STEMI, smoker, COPD, malignant hypertension Hospital Course: MARCELLA CHAMBERS 02/24/21 1216: Michelle Banegas is a 65yo female with a PMH of COPD, HTN who is admitted on 02/22 for management for hypertensive urgency and unstable angina. Patient reports onset of dull, crushing chest pain and dyspnea that began on 02/20 while vacuuming. By 02/21 the symptoms were occurring at rest. On 02/22 She initially presented to [facility]. EKG showed t wave inversion in inferior leads consistent with an NSTEMI, and troponins were elevated at 0.106. Patient was given aspirin and transferred to [facility]. On admission, patient's blood pressure was 202/84. Troponins were elevated at 0.098 and later at 0.100. For her acute coronary syndrome she was started on heparin, aspirin, morphine and nitroglycerin. For her hypertension she was started on Norvasc in addition to her PUBLIC DEFENDER medications. On 02/23, patient underwent heart catheterization with stent placement in the right coronary artery.The procedure was done without complication. She was then started on ticagrelor and continued aspirin. By 02/24 her blood pressures were stable and her symptoms completely resolved. She was discharged home 02/24. All questions and concerns were addressed. Labs and Pending Lab Test: Laboratory Tests 02/24/21 04:50: White Blood Count 10.5, Red Blood Count 4.16, Hemoglobin 13.1, Hematocrit 38, Mean Corpuscular Volume 92, Mean Corpuscular Hemoglobin 32, Mean Corpuscular Hemoglobin Concent 34, Red Cell Distribution Width 13.5, Platelet Count 231, Mean Platelet Volume 9.9, Sodium Level 132L, Potassium Level 3.6, Chloride Level 99, Carbon Dioxide Level 21, Anion Gap 12, Blood Urea Nitrogen 17, Creatinine 1.19, Estimat Glomerular Filtration Rate 46, BUN/Creatinine Ratio 14, Glucose Level 117H, Calcium Level 9.6 Home Meds Active Aspirin EC (Aspirin) 81 Mg Tablet.dr 81 Mg PO DAILY Amlodipine Besylate 10 Mg Tablet 10 Mg PO DAILY Nitroglycerin 0.4 Mg Tab.subl 0.4 Mg SL NEEDED PRN Rosuvastatin Calcium 20 Mg Tablet 20 Mg PO HS Brilinta (Ticagrelor) 90 Mg Tablet 90 Mg PO BID Reported Carvedilol 25 Mg Tablet 25 Mg PO HS Losartan Potassium 50 Mg Tablet 50 Mg PO HS Omeprazole 40 Mg Capsule.dr 40 Mg PO HS Clonazepam 0.5 Mg Tablet 0.5 Mg PO BID PRN Tizanidine HCl 4 Mg Tablet 4 Mg PO Q6H PRN Amitriptyline HCl 150 Mg Tablet 150 Mg PO HS Assessment/Pt Instructions Primary care provider in 2 weeks Discharge Planning: <30 minutes discharge planning Discharge Instructions Discharge Diet: Cardiac Diet Discharge Physical Examination Vital Signs Vital Signs Date Time Temp Pulse Resp B/P (MAP) Pulse Ox O2 Delivery O2 Flow Rate FiO2 02/24/21 07:00 65 02/24/21 04:00 28 133/58 (83) 94 Room Air 02/23/21 23:30 37.0 General Appearance: No Apparent Distress, WD/WN, Chronically ill Allergies: Coded Allergies: methylergonovine (Verified Allergy, Intermediate, INCREASED B/P, N/V, 01/17/16) Discharge Summary Date of Admission Feb 22, 2021 at 13:40 Date of Discharge Discharge Date: Feb 24, 2021 Admission Diagnosis Assessment: Chest pain suspicious for angina needs cardiac cath Malignant hypertension Smoker Plan: Blood pressure management Cardiac cath tomorrow Discharge Diagnosis s/p stent BP improved (1) Non-ST elevation myocardial infarction (NSTEMI), initial care episode Assessment & Plan: She is status post non-ST elevation myocardial infarction. This was treated with 1 drug-eluting stent to the mid right coronary artery. She also has residual disease in the mid left anterior descending coronary artery and first diagonal branch which I plan to treat medically. She should continue on dual antiplatelet therapy for a minimum month 1 years time in light of the myocardial infarction. She should continue on beta-yonny and statin medication. From a cardiac standpoint, she can be discharged home today. I have asked nursing to get her an appointment to see me in the office in 1 month. I did send prescriptions for all of her new cardiac medications to her outpatient pharmacy. (2) Hypertensive urgency Assessment & Plan: Her blood pressures are improved with resumption of her outpatient medication and the addition of amlodipine. (3) Hypertrophic cardiomyopathy Assessment & Plan: She had severe septal hypertrophy without evidence of outflow obstruction on her outside echocardiogram. This will need to be followed longitudinally. (4) Chronic kidney disease, stage 3 Assessment & Plan: Creatinine level has been stable. (5) Primary hypertension Assessment & Plan: As above. (6) Mixed hyperlipidemia Assessment & Plan: I have her on moderate dose statin in light of the myocardial infarction. I will plan on a follow-up lipid panel in 6 weeks after discharge. (7) Cigarette smoker Assessment & Plan: Smoking cessation was strongly encouraged. ANALILIA ROGERS DO Feb 24, 2021 09:58
--- NOTE | 2021-02-24 12:16 | Progress Note ---
MARCELLA CHAMBERS 02/24/21 1216: Progress Note Michelle Banegas is a 65yo female with a PMH of COPD, HTN who is admitted on 02/22 for management for hypertensive urgency and unstable angina. Patient reports onset of dull, crushing chest pain and dyspnea that began on 02/20 while vacuuming. By 02/21 the symptoms were occurring at rest. On 02/22 She initially presented to [facility]. EKG showed t wave inversion in inferior leads consistent with an NSTEMI, and troponins were elevated at 0.106. Patient was given aspirin and transferred to [facility]. On admission, patient's blood pressure was 202/84. Troponins were elevated at 0.098 and later at 0.100. For her acute coronary syndrome she was started on heparin, aspirin, morphine and nitr oglycerin. 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 On 02/23, patient underwent heart catheterization with stent placement in the right coronary artery.The procedure was done without complication. She was then started on ticagrelor and continued aspirin. By 02/24 her blood pressures were stable and her symptoms completely resolved. She was d ischarged home 02/24. All questions and concerns were addressed. EULA ROGERS DO 02/25/21 0602: Supervisory-Addendum Brief Verification & Attestation Participated in pt care: history, MDM, physical Personally performed: exam, history, MDM, supervision of care Care discussed with: Medical Student Procedures: n/a Results interpretation: Verified all documentation Verification and Attestation of Medical Student E/M Service A medical student performed and documented this service in my presence. I reviewed and verified all information documented by the medical student and made modifications to such information, when appropriate. I personally performed the physical exam and medical decision making. Eula Rogers Feb 25, 2021,06:02 MARCELLA CHAMBERS Feb 24, 2021 12:16 EULA ROGERS DO Feb 25, 2021 06:02
== END 2021-02-24 11:20 | disposition home or self-care (01) ==
LOC: CATH 13:10 → 4TH 13:10 → UNDOADMOB 13:40 → 4TH 13:40 → EDSTATUS 17:38 → CSD 02-23 12:32 → 4TH 02-23 12:32 → UNDODISOB 02-24 11:20 → CATH 02-24 11:20
PROVIDERS: ATTEND Internal Medicine
DX: I21.4 Non-ST elevation (NSTEMI) myocardial infarction (principal); I24.9 Acute ischemic heart disease, unspecified; I25.89 Other forms of chronic ischemic heart disease; J44.9 Chronic obstructive pulmonary disease, unspecified; I16.0 Hypertensive urgency; I12.9 Hypertensive chronic kidney disease with stage 1 through stage 4 chronic kidney disease, or unspecified chronic kidney disease; N18.30 Chronic kidney disease, stage 3 unspecified; J30.2 Other seasonal allergic rhinitis; E78.00 Pure hypercholesterolemia, unspecified; F41.9 Anxiety disorder, unspecified; G89.29 Other chronic pain; M54.2 Cervicalgia; I42.2 Other hypertrophic cardiomyopathy; E78.2 Mixed hyperlipidemia; F17.210 Nicotine dependence, cigarettes, uncomplicated; Z79.899 Other long term (current) drug therapy
CPT/HCPCS: 36140; 80048; 80053 ×2; 80061; 84484; 85025 ×2; 85027; 85347; 85730 ×2; 93005 ×3; 93454; C1725; C1760; C1874; C1887; C1894 ×2; C9600; G0378; G0379; 36415; 99211

== ENCOUNTER → 2021-04-06 | Outpatient (CLI) | payer MEDICARE ==
[~2021-04-06] MED LIST changes: -ALPRAZolam 0.25 MG (XANAX) TAB PO PRN; +AMLO-251 PO; +ASPI-1238 PO; -CALCIUM CARBONATE 500 MG (TUMS) TAB.CHEW PO PRN; +CATHETER FLUSH 10 ML SYR IV PRN; -LOPERAMIDE 2 MG (IMODIUM) TABLET PO PRN; +LOSA50TA63 PO; -MELATONIN 3 MG TABLET PO PRN; +NITR0.4T42 SL; -NS IV 1000 ML 1,000 ML IV SCH; +OMEP40CA6 PO; +REGADENOSON 0.4 MG/5 ML SYR (LEXISCAN) IV ONE; +ROSU20TA32 PO; +TICA90TA PO; -diphenhydrAMINE 25 MG TAB (BENADRYL) PO PRN; -morphine INJ 10 MG/ML 1ML (SYR OR VIAL) IVP PRN
[2021-04-06 09:35] VITALS: BP 180/83
--- NOTE | 2021-04-06 12:32 | NUCLEAR STRESS TEST ---
REGADENOSON NUCLEAR STRESS Date of procedure: 04/06/2021. Primary care provider: No local provider Admitting physician: Karthik Eduardo Jr., MD. INDICATION: Coronary artery disease without angina. BASELINE ELECTROCARDIOGRAM: Sinus rhythm with nonspecific ST changes. STRESS TEST PROCEDURE: The patient was administered 0.4 mg of intravenous Regadenoson. The resting heart rate was 88 bpm and the peak heart rate was 115 bpm. The resting blood pressure was 180/83 mmHg and the minimum blood pressure was 138/86 mmHg. This represents a normal heart rate and a normal blood pressure response to Regadenoson with resting hypertension. The test was stopped due to the protocol. There was no chest discomfort during the test. There were no arrhythmias during the test. There were no significant stress induced electrocardiogram changes. NUCLEAR PROCEDURE: The patient was administered 10.8 mCi of intravenous technetium 99m Tetrofosmin at rest for the rest images. The patient was subsequently administered 32.7 mCi of intravenous technetium 99m Tetrofosmin at peak stress for the stress images. Following an appropriate wait after each injection, imaging was obtained. The images were subsequently processed and reformatted in the usual views. Gated imaging was obtained. The image quality was adequate but with a mild degree of gastrointestinal attenuation artifact. CT attenuation correction was used as a adjunct to standard imaging. Both the corrected and uncorrected images were reviewed for interpretation. NUCLEAR RESULTS: There was normal myocardial perfusion in all segments without evidence of infarction or ischemia. There was normal left ventricular chamber size with an end-diastolic volume of 46 mL and an end-systolic volume of 13 mL. There was no evidence of transient ischemic dilatation. The TID ratio was 0.95. There was normal wall motion in all segments with a calculated ejection fraction of 72%. IMPRESSION: 1. Normal heart rate and blood pressure response to regadenoson with resting hypertension. 2. There was no chest discomfort, arrhythmias, or electrocardiogram changes during the test. 3. There was normal myocardial perfusion in all segments without evidence of infarction or ischemia. 4. There was normal wall motion in all segments with a calculated ejection fraction of 72%. Certain portions of this document may have been dictated utilizing voice rec ognition technology. Inherent to this technology, typographical and grammatical errors may exist. As much as I am diligent to identify and correct these mistakes, some errors may remain in the document. KARTHIK EDUARDO JR, MD Nov 4, 2021 12:32
== END ==
LOC: CARD 08:18
PROVIDERS: ATTEND Internal Medicine Cardiovascular Disease
DX: I25.10 Atherosclerotic heart disease of native coronary artery without angina pectoris (principal)
CPT/HCPCS: 78452; 93017; A9502

== ENCOUNTER → 2021-10-24 | Outpatient (CLI) | payer MEDICARE ==
[~2021-10-24] MED LIST changes: -BUPR200T3 PO; +BUPR200T7 PO; -CATHETER FLUSH 10 ML SYR IV PRN; +POTA-179 PO; -POTA20TA15 PO; -REGADENOSON 0.4 MG/5 ML SYR (LEXISCAN) IV ONE; +RT-ALBUTEROL SULF 2.5 MG/3 ML PRE-MIX VIAL INH ONE; +TIZA-186 PO; -TIZA4TAB4 PO
--- NOTE | 2021-10-24 14:14 | Diagnostic Imaging Report ---
INDICATION: COPD. Time of Exam: 10:39 AM Comparison is made with prior chest from 02/03/2016. Finding: The heart size is normal. The pulmonary vascularity is unremarkable. The lungs are clear. No infiltrate, effusion or pneumothorax is detected. Impression: No acute cardiopulmonary process is detected. Dictated by: Dictated on workstation # [id number]
== END ==
LOC: RT 10:20
PROVIDERS: ATTEND Internal Medicine Cardiovascular Disease
DX: J44.9 Chronic obstructive pulmonary disease, unspecified (principal)
CPT/HCPCS: 71046; 94060; 94726; 94729

== ENCOUNTER → 2022-02-08 | Outpatient (CLI) | payer MEDICARE ==
[~2022-02-08] MED LIST changes: -RT-ALBUTEROL SULF 2.5 MG/3 ML PRE-MIX VIAL INH ONE
--- NOTE | 2022-02-08 10:51 | Diagnostic Imaging Report ---
EXAMINATION: CT chest without contrast (lung screening). TECHNIQUE: Multiple contiguous axial images were obtained through the chest without the use of intravenous contrast according to lung cancer screening protocol. All CT scans use one or more of the following dose optimizing techniques: automated exposure control, MA and/or KvP adjustment based on patient size and exam type or iterative reconstruction. HISTORY: 26.5 pack year history of smoking. COMPARISON: 02/02/2016 FINDINGS: Thyroid: There is a calcified right thyroid nodule. Mediastinum: Heart size is normal without significant pericardial effusion. Calcifications of the aorta and coronary vessels. Thoracic aorta is normal in caliber. No suspicious lymphadenopathy. Lungs and airways: There are background emphysematous changes of the lungs without consolidation, pleural effusion, or pneumothorax. There are a few scattered areas of scarring. There are couple of calcified granulomas within the lungs. Within the right lower lobe, there is a 0.5 x 0.5 cm pulmonary nodule (series 2 image 88). The airways are normal. Upper abdomen: The subphrenic structures are normal. Musculoskeletal: Degenerative changes of the spine without suspicious osseous lesion or compression fracture. IMPRESSION: 1. Pulmonary nodules measuring up to 0.5 cm. Recommend continued annual low-dose CT screening. LUNG-RADS CATEGORY: 2 MODIFIER: S Dictated by: Dictated on workstation # [id number]
== END ==
LOC: RAD 10:04
PROVIDERS: ATTEND Internal Medicine Critical Care Medicine
DX: J44.9 Chronic obstructive pulmonary disease, unspecified (principal); F17.210 Nicotine dependence, cigarettes, uncomplicated
CPT/HCPCS: 71271

== ENCOUNTER 2023-04-17 06:17 | Outpatient (CLI) | payer MEDICARE ==
[~2023-04-17] VITALS: Ht 170.2 cm; Wt 93.0 kg
[~2023-04-17 06:17] MED LIST changes: -ROSU20TA32 PO; +ROSU20TA73 PO
[2023-04-23] MEDS ORDERED: BUPR200T7 PO (16:26)
[2023-04-23] MEDS ORDERED: ISOS60TA63 PO (16:26)
[2023-04-23] MEDS ORDERED: TRIA1TAB3 PO (16:26)
[2023-04-23] MEDS ORDERED: MELO15TA39 PO (16:26)
[2023-04-23] MEDS ORDERED: TIZA4CAP8 PO (16:26)
[2023-04-23] MEDS ORDERED: ZOLP5TAB7 PO (16:26)
== END 2023-04-23 16:37 | disposition home or self-care (01) ==
LOC: PREOP 06:17
PROVIDERS: ATTEND Surgery
DX: Z01.818 Encounter for other preprocedural examination (principal)

== ENCOUNTER 2023-04-30 11:59 | Day surgery (SDC) | payer MEDICARE ==
[~2023-04-30] VITALS: Ht 170.2 cm; Wt 93.0 kg
[~2023-04-30 11:59] MED LIST changes: +ISOS60TA63 PO; +MELO15TA39 PO; +TIZA4CAP8 PO; +TRIA1TAB3 PO; +ZOLP5TAB7 PO
[2023-04-30] MEDS ORDERED: LACTATED RINGERS 1,000 ML 1,000 ML IV STA (12:00)
[2023-04-30] MEDS ORDERED: HURRICAINE EXT TUBE (BENZOCAINE) XX PRN (12:00)
[2023-04-30 12:30] VITALS: BP 135/73
--- NOTE | 2023-04-30 14:27 | Progress Note-Pre Operative ---
Pre-Operative Progress Note Date of Available H&P: Apr 30, 2023 Date H&P Reviewed: Apr 30, 2023 Time H&P Reviewed: 14:27 History & Physical: H&P Reviewed, Patient Examed, No changes noted Pre-Operative Diagnosis: History of colon polyps and GERD PAULINE EDUARDO DO Apr 30, 2023 14:27
[2023-04-30] MEDS ORDERED: proPOfol INJECTION 200 MG/20 ML VIAL IV ONE (15:04)
--- NOTE | 2023-04-30 15:09 | Progress Note-Post Operative ---
Post-Operative Progess Note Surgeon (s)/Food And Drug Inspector (s) Surgeon PAULINE EDUARDO DO Food And Drug Inspector: n/a Pre-Operative Diagnosis History of colon polyps and GERD Post-Operative Diagnosis Hiatal Hernia, Internal hemorrhoids Procedure & Operative Findings Date of Procedure 04/30/23 Procedure Performed/Findings EGD with biopsies, colonoscopy Anesthesia Type per AERONAUTICAL TEST ENGINEER Estimated Blood Loss Estimated blood loss (mL): none Specimens/Packing Specimens Removed Antrum x2, GE x1 PAULINE EDUARDO DO Apr 30, 2023 15:09
[2023-04-30 15:10] VITALS: BP 188/82
--- NOTE | 2023-04-30 15:11 | Discharge Inst-Simple/Standard ---
Discharge Inst-Standard Patient Instructions/Follow Up Plan of Care/Instructions/FU: 2 weeks mario Activity as Tolerated: Yes Discharge Diet: Regular Diet (high fiber) PAULINE EDUARDO DO Apr 30, 2023 15:11
[2023-04-30 15:15] VITALS: BP 188/82
[2023-04-30 15:40] VITALS: BP 157/76
[2023-04-30 15:50] VITALS: BP 157/76
--- NOTE | 2023-04-30 23:53 | OPERATIVE REPORT ---
DATE OF SERVICE: 04/30/2023 PREOPERATIVE DIAGNOSES: History of polyps and gastroesophageal reflux disease. POSTOPERATIVE DIAGNOSES: Hiatal hernia, slight gastritis and internal hemorrhoids. PROCEDURES: EGD with biopsies, colonoscopy. SURGEON: Pauline Melendez DO ANESTHESIA: Per HAND ALTERATIONS SEAMSTRESS. ESTIMATED BLOOD LOSS: None. COMPLICATIONS: None. INDICATIONS: The patient is a 67-year-old female with history of polyps and gastroesophageal reflux disease. She understands risks and benefits of procedure and wished to proceed. Consent was signed in chart. DESCRIPTION OF PROCEDURE: The patient was taken to endoscopy suite, placed in left lateral recumbent position. Timeout was performed. Scope was inserted in the mouth, down the esophagus, stomach and into the duodenum without difficulty. No polyps, masses or ulcerations within the duodenum. Scope was slowly retracted back into the stomach where it was further insufflated. Changes of slight gastritis present. Biopsies of the antrum were obtained. Scope was retroflexed noting a small hiatal hernia, no other pathology. Scope was returned to its normal position, slowly withdrawn until distal esophagus. Biopsy of GE junction was obtained. No polyps, masses or ulcerations. Scope was slowly retracted back until completely removed. Digital rectal exam was performed. Some internal hemorrhoids. Scope was inserted into the rectum and advanced all the way to the cecum, had to be repositioned a couple times. I got to the cecum. There were no polyps, masses or ulcerations in the cecum. Prep was adequate with irrigation and suction. Scope was slowly retracted back. No polyps, masses or ulcerations in the cecum, ascending, transverse, descending and sigmoid colon. Once in the rectum, scope was attempted to retroflex but too narrow, so multiple insertions and retractions were made just noting the internal hemorrhoids. Scope was slowly retracted back until completely removed. The patient tolerated the procedure well without complications, taken to recovery room in stable condition. RECOMMENDATIONS: The patient will continue on omeprazole. Depending on biopsies, would consider switching to Protonix. The patient will follow up in a couple of weeks. The patient will need repeat colonoscopy in 5 years due to history of polyps. Any changes before that, be seen at that time. Job ID: [id number] DocumentID: [id number] Dictated Date: 04/30/2023 15:15:11 Able Bodied Watchman Date: 04/30/2023 23:50:00 Dictated By: PAULINE MELENDEZ DO
== END 2023-04-30 15:50 | disposition home or self-care (01) ==
LOC: ENDO 11:59
PROVIDERS: ATTEND Surgery
DX: Z12.11 Encounter for screening for malignant neoplasm of colon (principal); K64.8 Other hemorrhoids; K44.9 Diaphragmatic hernia without obstruction or gangrene; K29.70 Gastritis, unspecified, without bleeding; K21.00 Gastro-esophageal reflux disease with esophagitis, without bleeding; K31.89 Other diseases of stomach and duodenum; Z86.010 Personal history of colon polyps; E66.9 Obesity, unspecified; F17.210 Nicotine dependence, cigarettes, uncomplicated; Z95.5 Presence of coronary angioplasty implant and graft; Z68.32 Body mass index [BMI] 32.0-32.9, adult
CPT/HCPCS: 43239; G0105